=== PATIENT | male | born 1990 | race Caucasian/White ===

== ENCOUNTER 2019-07-26 17:55 | Emergency (ER) | payer OTHER ==
[~2019-07-26] VITALS: Ht 182.9 cm; Wt 86.4 kg
[~2019-07-26 17:55] MED LIST: LIB25 PO
[2019-07-26] MEDS ORDERED: BALS750C2 PO (18:20)
[2019-07-26 19:31] LABS: BASOPHILS % (AUTO) 0.7 % (0.0-2.0); EOSINOPHILS % (AUTO) 6.2 % (1.0-6.0); HEMATOCRIT 39.9 % (41-53); HEMOGLOBIN 13.5 g/dL (13.5-17.5); LYMPHOCYTES # (AUTO) 1.6 K/uL (1.0-4.8); LYMPHOCYTES % (AUTO) 20.8 % (22.0-44.0); MEAN CORPUSCULAR HEMOGLOBIN 29.6 pg (26.0-34.0); MEAN CORPUSCULAR HGB CONC 33.8 G/dL (31.0-37.0); MEAN CORPUSCULAR VOLUME 88 fL (80-100); MONOCYTES % (AUTO) 13.5 % (2.0-9.0); NEUTROPHILS # (AUTO) 4.4 K/uL (1.8-7.7); NEUTROPHILS % (AUTO) 58.8 % (40.0-70.0); PLATELET COUNT (AUTO) 288 K/uL (150-450); RED BLOOD CELL COUNT(AUTO) 4.56 MIL/uL (4.50-5.90); RED CELL DISTRIBUTION WIDTH 14.6 % (11.5-14.5)
[2019-07-26 19:34] LABS: ANION GAP 11 mmol/L (8-16); CALCIUM, TOTAL 9.2 mg/dL (8.8-10.5); CARBON DIOXIDE 27 mmol/L (22-29); CHLORIDE 101 mmol/L (98-107); CREATININE 1.14 mg/dL (0.60-1.30); GLOMERULAR FILTR. RATE CALC > 60 mL/min (>60); GLUCOSE,RANDOM 92 mg/dL (70-110); POTASSIUM 3.4 mmol/L (3.5-5.1); SODIUM SERUM 139 mmol/L (136-145); UREA NITROGEN, BLOOD 12 mg/dL (7-18)
[2019-07-26 19:42] LABS: ALANINE AMINOTRANSFERASE 18 U/L (12-78); ALBUMIN 4.2 g/dL (3.4-5.0); ALKALINE PHOSPHATASE 74 U/L (46-116); ASPARTATE AMINOTRANSFERASE 31 U/L (15-37); BILIRUBIN,TOTAL 0.6 mg/dL (0.1-1.0); LIPASE 112 U/L (73-393); TOTAL PROTEIN, SERUM 8.2 g/dL (6.4-8.2)
[2019-07-26] MEDS ORDERED: MORPHINE SULFATE 4 MG/ML SYRINGE IVP ONE (19:45)
[2019-07-26] MEDS ORDERED: SODIUM CHLORIDE 0.9% 1,000 ML IV ONE (19:45)
[2019-07-26 20:17] LABS: D-DIMER 1.01 mg/L FEU (0.00-0.50); INR 1.1 (0.9-1.1); PROTHROMBIN TIME 10.8 SEC (9.4-11.6)
[2019-07-26 20:24] LABS: CREATINE KINASE, TOTAL ONLY 279 U/L (39-308)
[2019-07-26] MEDS ORDERED: LORazepam 2 MG/ML VIAL IVP ONE (20:30)
[2019-07-26] MEDS ORDERED: MAGNESIUM SULFATE 2 GM/WATER 50 ML IV ONE (20:45)
[2019-07-26] MEDS: POTASSIUM CHL 10 MEQ/WATER 50 ML IV SCH ×2 (20:45→21:45)
[2019-07-26] MEDS ORDERED: IOVERSOL 350 MG/ML 150 ML VIAL ONE (20:56)
[2019-07-26] MEDS ORDERED: SODIUM CHLORIDE 0.9% 100 ML ONE (20:56)
[2019-07-26] MEDS ORDERED: ChlordiazePOXIDE HCL 25 MG CAPSULE PO ONE (22:15)
[2019-07-26] MEDS ORDERED: FAMOTIDINE 10 MG/ML 2 ML VIAL IVP ONE (22:15)
[2019-07-27 00:33] VITALS: BP 131/90
== END 2019-07-27 00:45 | disposition home or self-care (01) ==
LOC: EMS 18:06
DX: K52.9 Noninfective gastroenteritis and colitis, unspecified (principal); F10.239 Alcohol dependence with withdrawal, unspecified; E83.42 Hypomagnesemia; E87.6 Hypokalemia; F17.210 Nicotine dependence, cigarettes, uncomplicated; F12.90 Cannabis use, unspecified, uncomplicated; Y90.0 Blood alcohol level of less than 20 mg/100 ml
CPT/HCPCS: 36415; 71045; 71275; 74175; 80053; 82550; 83690; 83735; 83880; 84484; 85025; 85379; 85610; 85730; 93005; 96365; 96366; 96368; 96375; 99285; G0480; J2060; J2270; J3475; J3480; J3490; J7030; J7050; Q9967

== ENCOUNTER 2019-09-18 21:26 | Emergency (ER) | payer OTHER ==
[~2019-09-18] VITALS: Ht 182.9 cm; Wt 79.5 kg
[~2019-09-18 21:26] MED LIST changes: +BALS750C2 PO; -LIB25 PO
[2019-09-18 22:02] LABS: BASOPHILS % (AUTO) 0.9 % (0.0-2.0); HEMATOCRIT 40.5 % (41-53); HEMOGLOBIN 13.3 g/dL (13.5-17.5); LYMPHOCYTES # (AUTO) 3.5 K/uL (1.0-4.8); LYMPHOCYTES % (AUTO) 33.2 % (22.0-44.0); MEAN CORPUSCULAR HEMOGLOBIN 28.9 pg (26.0-34.0); MEAN CORPUSCULAR VOLUME 88 fL (80-100); MONOCYTES # (AUTO) 1.3 K/uL (0.1-1.0); MONOCYTES % (AUTO) 11.9 % (2.0-9.0); NEUTROPHILS # (AUTO) 5.2 K/uL (1.8-7.7); PLATELET COUNT (AUTO) 284 K/uL (150-450); RED BLOOD CELL COUNT(AUTO) 4.62 MIL/uL (4.50-5.90); RED CELL DISTRIBUTION WIDTH 15.1 % (11.5-14.5)
[2019-09-18 22:12] LABS: ANION GAP 9 mmol/L (8-16); CARBON DIOXIDE 26 mmol/L (22-29); CHLORIDE 100 mmol/L (98-107); CREATININE 1.45 mg/dL (0.60-1.30); GLOMERULAR FILTR. RATE CALC 57 mL/min (>60); GLUCOSE,RANDOM 97 mg/dL (70-110); POTASSIUM 3.6 mmol/L (3.5-5.1); SODIUM SERUM 135 mmol/L (136-145); UREA NITROGEN, BLOOD 14 mg/dL (7-18)
[2019-09-18 22:13] LABS: CALCIUM, TOTAL 9.1 mg/dL (8.8-10.5)
[2019-09-18 22:19] LABS: ALANINE AMINOTRANSFERASE 22 U/L (12-78); ALBUMIN 4.1 g/dL (3.4-5.0); ALKALINE PHOSPHATASE 78 U/L (46-116); ASPARTATE AMINOTRANSFERASE 36 U/L (15-37); BILIRUBIN,TOTAL 0.4 mg/dL (0.1-1.0); LIPASE 123 U/L (73-393); TOTAL PROTEIN, SERUM 8.6 g/dL (6.4-8.2)
[2019-09-18] MEDS ORDERED: LORazepam 2 MG TABLET PO ONE (22:30)
[2019-09-18 22:56] LABS: AMPHET/METH SCREEN,URINE NEGATIVE (NEGATIVE); BARBITURATE SCREEN, URINE NEGATIVE (NEGATIVE); BENZODIAZEPINES SCREEN,URINE NEGATIVE (NEGATIVE); CANNABINOID SCREEN,URINE POSITIVE (NEGATIVE); COCAINE SCREEN,URINE NEGATIVE (NEGATIVE); METHADONE SCREEN, URINE NEGATIVE (NEGATIVE); OPIATE SCREEN,URINE NEGATIVE (NEGATIVE)
[2019-09-18 23:00] LABS: PHENCYCLIDINE SCREEN,URINE NEGATIVE (NEGATIVE)
[2019-09-18 23:30] VITALS: BP 123/81
== END 2019-09-18 23:59 | disposition home or self-care (01) ==
LOC: EMS 21:26
DX: F41.9 Anxiety disorder, unspecified (principal); F10.129 Alcohol abuse with intoxication, unspecified; F17.210 Nicotine dependence, cigarettes, uncomplicated; F14.90 Cocaine use, unspecified, uncomplicated; F12.90 Cannabis use, unspecified, uncomplicated; F15.90 Other stimulant use, unspecified, uncomplicated; F11.90 Opioid use, unspecified, uncomplicated
CPT/HCPCS: 36415; 80053; 80307; 83690; 85025; 99283; 99406; G0480

== ENCOUNTER 2019-10-02 20:58 | Emergency (ER) | payer OTHER ==
[~2019-10-02] VITALS: Ht 182.9 cm; Wt 81.8 kg
[2019-10-02 21:49] LABS: BASOPHILS % (AUTO) 0.9 % (0.0-2.0); EOSINOPHILS % (AUTO) 2.4 % (1.0-6.0); HEMATOCRIT 42.8 % (41-53); HEMOGLOBIN 13.8 g/dL (13.5-17.5); MEAN CORPUSCULAR HEMOGLOBIN 28.5 pg (26.0-34.0); MEAN CORPUSCULAR HGB CONC 32.2 G/dL (31.0-37.0); MEAN CORPUSCULAR VOLUME 89 fL (80-100); MONOCYTES # (AUTO) 1.8 K/uL (0.1-1.0); MONOCYTES % (AUTO) 15.9 % (2.0-9.0); NEUTROPHILS % (AUTO) 53.8 % (40.0-70.0); PLATELET COUNT (AUTO) 370 K/uL (150-450); RED BLOOD CELL COUNT(AUTO) 4.84 MIL/uL (4.50-5.90); RED CELL DISTRIBUTION WIDTH 15.6 % (11.5-14.5)
[2019-10-02 22:02] LABS: ANION GAP 14 mmol/L (8-16); CALCIUM, TOTAL 9.4 mg/dL (8.8-10.5); CARBON DIOXIDE 25 mmol/L (22-29); CHLORIDE 103 mmol/L (98-107); CREATININE 1.47 mg/dL (0.60-1.30); GLOMERULAR FILTR. RATE CALC > 60 mL/min (>60); GLUCOSE,RANDOM 119 mg/dL (70-110); POTASSIUM 3.6 mmol/L (3.5-5.1); SODIUM SERUM 142 mmol/L (136-145); UREA NITROGEN, BLOOD 11 mg/dL (7-18)
[2019-10-02 22:04] LABS: PROTHROMBIN TIME 10.9 SEC (9.4-11.6)
[2019-10-02 22:07] LABS: ALANINE AMINOTRANSFERASE 21 U/L (12-78); ALBUMIN 4.3 g/dL (3.4-5.0); ALKALINE PHOSPHATASE 76 U/L (46-116); ASPARTATE AMINOTRANSFERASE 42 U/L (15-37); BILIRUBIN,TOTAL 0.5 mg/dL (0.1-1.0); LIPASE 124 U/L (73-393); TOTAL PROTEIN, SERUM 9.1 g/dL (6.4-8.2)
[2019-10-02] MEDS ORDERED: MORPHINE SULFATE 4 MG/ML SYRINGE IVP ONE (23:15)
[2019-10-02] MEDS ORDERED: SODIUM CHLORIDE 0.9% 1,000 ML IV ONE (23:15)
[2019-10-02] MEDS ORDERED: PANTOPRAZOLE SODIUM 40 MG/VIAL IVP ONE (23:15)
[2019-10-02] MEDS ORDERED: FAMOTIDINE 10 MG/ML 2 ML VIAL IVP ONE (23:15)
[2019-10-02] MEDS ORDERED: ONDANSETRON HCL 4 MG/2 ML VIAL IVP ONE (23:15)
[2019-10-03] VITALS: BP 120/65
== END 2019-10-03 00:50 | disposition home or self-care (01) ==
LOC: EMS 20:58
DX: K92.0 Hematemesis (principal); F10.120 Alcohol abuse with intoxication, uncomplicated; F17.210 Nicotine dependence, cigarettes, uncomplicated; F12.90 Cannabis use, unspecified, uncomplicated; Z79.899 Other long term (current) drug therapy
CPT/HCPCS: 36415; 71045; 80053; 83690; 85025; 85610; 85730; 86850; 86900; 86901; 93005; 96361; 96374; 96375; 99285; C9113; G0480; J2270; J2405; J3490; J7030

== ENCOUNTER 2019-10-14 08:01 | Emergency (ER) | payer OTHER ==
[~2019-10-14] VITALS: Ht 182.9 cm; Wt 77.3 kg
[2019-10-14 11:22] VITALS: BP 141/79
== END 2019-10-14 11:57 | disposition home or self-care (01) ==
LOC: EMS 08:09
DX: S80.12XA Contusion of left lower leg, initial encounter (principal); W23.0XXA Caught, crushed, jammed, or pinched between moving objects, initial encounter; Y93.89 Activity, other specified; Y92.89 Other specified places as the place of occurrence of the external cause; Y99.8 Other external cause status